=== PATIENT | female | born 1955 | race Caucasian/White ===

== ENCOUNTER 2016-07-24 03:00 | Inpatient (IN) | payer OTHER ==
[~2016-07-24] VITALS: Ht 170.2 cm; Wt 89.8 kg
[~2016-07-24 03:00] MED LIST: ASPIRIN325 M2 PO; CITALOPRAM HBR40 MG PO; COLACE100 M1 PO; DILAUDID2 M1 PO; LEVOXYL75 MCG PO; MIRALAX17 G1 PO; MORPHINE SULFAT30 M3 PO; MS CONTIN15 M2 PO; NORCO 7.5-3251 EACH PO; PERCOCET 5-3251 EACH PO; VICODIN ES 7.51 EACH PO
--- NOTE | 2016-07-24 07:42 | Admission Core Measures ---
Admission Meds I reviewed the following Meds: Current Medications Sig/Gume Start time Last Medication Dose Stop Time Status Admin Acetaminophen 975 MG ONCE 07/24 0000 NR (Tylenol) 07/24 2358 Cefazolin Sodium 2,000 MG ONCE 07/24 NR (Kefzol-Ancef Inj) 07/24 2358 Oxycodone HCl 10 MG ONCE 07/24 0000 NR (Roxicodone) 07/24 2358 Acute Coronary Syndrome Inclusion Criteria ACS Diagnosis No Inpatient Core Measures LDL Reminder: If No, please order W/I first 24hr of stay Congestive Heart Failure Inclusion Criteria CHF Diagnosis No Cerebrovascular accident Inclusion Criteria CVA/TIA Diagnosis No Inpatient Core Measures Bedside Swallow Eval Reminder: If BSE failed, place ST order Antithrombotic Reminder: Order Antithrombotic Medication by end of day 2 Antithrombotic Reminder: Document Reason Antithrombotic Not ordered by end of day 2 AFIB/Flutter Reminder: If Present, add to problem list AFIB/Flutter Reminder: Order Anticoag Medication for pts with AFIB/Flutter Atherosclerosis Reminder: If Present, add to problem list LDL Reminder: If No, please order W/I first 24hr of stay PT Order Reminder: If No, please order Venous thromboembolism Inpatient Core Measures VTE Risk Factors: Age > 40, Surgery VTE Prophylaxis Ordered Inpt Mech & Pharm No Mech VTE prophylaxis d/t No contraindications No VTE Pharm Prophylaxis d/t No contraindications Inclusion Criteria - Per Current guidelines, there needs to be overlap - treatment for the first 5 days of Warfarin therapy. - Parenteral Anticoagulation (IV or SC) needs to be - given along with Warfarin therapy. VTE Diagnosis No VTE Type NONE VTE Confirmed by (Test) NONE Problem List As ranked by this Provider includes Assessment & Plan 1. S/P total hip arthroplasty HOME MEDS Home Med List Aspirin (Aspirin*) 325 MG TABLET 1 TAB PO BID BLOOD THINNER Citalopram Hydrobromide (Citalopram HBr) 40 MG TABLET 1 TAB PO DAILY DEPRESSION (Reported) Docusate Sodium (Colace) 100 MG CAPSULE 1 CAP PO BID PRN CONSTIPATION Hydrocodone/Acetaminophen (Vicodin Es 7.5-300 MG Tablet) 7.5 MG-300 MG TABLET 7.5 MG PO DAILY NEEDED PRN PAIN SCALE 7-10 (SEVERE) (Reported) Levothyroxine Sodium (Levoxyl) 75 MCG TABLET 1 TAB PO DAILY THYROID (Reported ) Polyethylene Glycol 3350 (Miralax) 17 GM POWD.PACK 1 PAC PO DAILY CONSTIPATION
[2016-07-24] MEDS ORDERED: MS CONTIN30 M1 PO (07:59)
[2016-07-24] MEDS ORDERED: MIRALAX17 G1 PO (07:59)
[2016-07-24] MEDS ORDERED: ASPIRIN325 M2 PO (07:59)
[2016-07-24] MEDS ORDERED: DILAUDID4 M1 PO (07:59)
[2016-07-24] MEDS ORDERED: COLACE100 M1 PO (07:59)
--- NOTE | 2016-07-24 08:04 | Patient Discharge Instructions ---
Discharge Instructions General Discharge Information You were seen/treated for: Left hip degenerative joint disease You had these procedures: Left hip total arthroplasty Watch for these problems: Significantly increased pain, difficulty ambulating, redness or drainage from around incision. Fevers greater than 101.5 No bath, but you may shower: Yes Other wound care: See printed information sheet Diet Continue normal diet: Yes Activity Activity Self Limited: Yes Pounds, do NOT lift more than: 10 Other activity limits: As instructed by physical therapy No driving or operating any heavy machinery until cleared by surgeon Acute Coronary Syndrome Inclusion Criteria At DC or during hospital stay patient has or had the following: ACS DIAGNOSIS No Discharge Core Measures Meds if any: Prescribed or Continued at Discharge Meds if any: NOT Prescribed or Continued at Discharge Congestive Heart Failure Inclusion Criteria At DC or during hospital stay patient has or had the following: CHF DIAGNOSIS No Discharge Core Measures Meds if any: Prescribed or Continued at Discharge Meds if any: NOT Prescribed or Continued at Discharge Cerebrovascular accident Inclusion Criteria At DC or during hospital stay patient has or had the following: CVA/TIA Diagnosis No Discharge Core Measures Meds if any: Prescribed or Continued at Discharge Meds if any: NOT Prescribed or Continued at Discharge Venous thromboembolism Inclusion Criteria VTE Diagnosis No VTE Type NONE VTE Confirmed by (Test) NONE Discharge Core Measures - Per Current guidelines, there needs to be overlap - treatment for the first 5 days of Warfarin therapy. - If discharged on Warfarin prior to 5 days of - overlap therapy, the patient will need to be - assessed for post discharge needs including - *Post discharge parental anticoagulation - *Warfarin and/or parental anticoagulation education - *Follow up date to check INR post discharge At least 5 days overlap therapy as Inpatient No Meds if any: Prescribed or Continued at Discharge Note: Overlap Therapy is Warfarin and Anticoagulant Meds if any: NOT Prescribed or Continued at Discharge
--- NOTE | 2016-07-24 08:05 | Surg Short-stay <48hrs Dis Sum ---
Visit Information Visit Dates Admission Date: 07/24/16 Discharge Date: 07/25/16 Surgical Short Stay DC Summary Admission Diagnosis: Left hip degenerative joint disease Final Diagnosis: Same Procedure(s): Left total hip arthroplasty Summary/Significant Findings: The patient was admitted on 07/24/2016. She was brought to the operating theater where she underwent a left hip total arthroplasty. Postoperative the patient progressed as expected, her pain was under adequate control, she worked with physical therapy, voided and tolerated a diet. The patient is discharged with an uneventful hospital course. Condition at Discharge: Stable Discharge Disposition: home health services Discharge instructions provided to patient/family: Yes Post discharge follow-up plan: Call the office to be seen in 6 weeks or earlier if there are any issues
--- NOTE | 2016-07-24 10:37 | RADIOLOGY REPORT ---
2 views of the left hip CLINICAL INFORMATION: Status post left total hip replacement COMPARISON: Abdominal CT 09/20/2012 TECHNIQUE: Two views of the left hip. FINDINGS: There are postoperative changes following left total hip arthroplasty. The prosthesis elements appear well aligned. There are no acute fractures. Mild subcutaneous gas within the left thigh. IMPRESSION: Expected postoperative changes following left total hip arthroplasty. There are no acute osseous findings.
[2016-07-24 11:05] VITALS: BP 108/60
--- NOTE | 2016-07-24 12:35 | NUR ---
PT ARRIVED TO FLOOR AT 1103 VIA STRETCHER. DANA AT BEDSIDE. VITAL SIGNS: BP: 108/60, TEMP 98.0, RR 18, 94% ON ROOM AIR, PULSE 82. PT AMBULATING WITH PHYSICAL THERAPY. C/O MILD PAIN. WILL CONTINUE TO MONITOR.
[2016-07-24 12:59] VITALS: BP 122/60
--- NOTE | 2016-07-24 13:27 | PN- Orthopedic ---
Subjective Subjective: Post Op Note s/p left total hip arthroplasty Patient without c/o. States her pain is well controlled at this time. Denies numbness/tingling in LLE. Tolerating diet thus far, no n/v. Ambulated with PT, no issues. Denies CP/SOB. Objective Vital Signs and I&Os Vital Signs Date Time Temp Pulse Resp B/P Pulse O2 O2 Flow FiO2 Ox Delivery Rate 07/24 1259 97.9 84 20 122/60 96 Room Air 07/24 1105 98.0 82 18 108/60 94 Room Air Intake & Output 07/24 1600 07/24 0800 07/24 0000 07/23 1600 07/23 0800 07/23 0000 Intake Total Output Total Balance Patient 198 lb Weight Physical Exam: General: NAD, comfortable, A&Ox3 Chest: NRD, breathing comfortably on 2L NC. RRR. Abdomen: soft, nontender, nondistended. Ext: Left hip dressing was one small spot in middle otherwise clean dry and intact. Left thigh softly swollen. LLE compartments soft. No calve swelling/ TTP, neurovascularly intact bilateral lower extremities Current Medications: Current Medications Sig/Gume Start time Last Medication Dose Route Stop Time Status Admin Acetaminophen 975 MG ONCE 07/24 0000 DC PO 07/24 2359 Aspirin 325 MG BID 07/24 1000 AC PO Cefazolin Sodium 1,000 MG IQ8 07/24 0800 AC IV 07/24 1601 Cefazolin Sodium 2,000 MG ONCE 07/24 0000 DC IV 07/24 2359 Citalopram 40 MG DAILY 07/24 1000 AC Hydrobromide PO Dextrose/Sodium 1,000 ML .[id number] 07/24 1130 AC 07/24 Chloride IV 1130 Docusate Sodium 100 MG DAILY 07/24 1000 AC PO Hydromorphone HCl 2 MG Q4P PRN 07/24 1130 AC PO Hydromorphone HCl 4 MG Q4P PRN 07/24 1130 AC 07/24 PO 1212 Ketorolac 15 MG Q8 07/24 1400 AC Tromethamine IM 07/25 1401 Levothyroxine Sodium 0.075 MG DAILY AC 07/25 0700 AC PO Morphine Sulfate 2 MG Q2P PRN 07/24 1130 AC 07/24 IV 1125 Morphine Sulfate 30 MG BID 07/24 1000 AC PO Ondansetron HCl 4 MG Q6P PRN 07/24 1130 AC IV Oxycodone HCl 10 MG .STK-MED ONE 07/24 1026 DC PO 07/24 1027 Oxycodone HCl 10 MG .STK-MED ONE 07/24 0728 DC PO 07/24 0729 Oxycodone HCl 10 MG ONCE 07/24 0000 DC PO 07/24 2359 Polyethylene Glycol 17 GM DAILY 07/24 1000 AC PO Promethazine HCl 12.5 MG Q6P PRN 07/24 1130 AC IV 07/31 0744 Assessment/Plan Assessment/Plan 60yo F POD#0 s/p left ANNE. AVSS, patient stable. - Pain control - PRN zofran - ASA 325mg PO BID - OOB and ambulate with PT, WBAT - I/O's - DC IVF when tolerating PO - cefazolin x2 more doses - ALPS - TEDS - CBC, BEP in a.m. Core Measures/Miscellaneous Venous Thromboembolism VTE Risk Factors: Age > 40, Surgery VTE Contraindications: No Contraindications VTE Prophylaxis Ordered Inpt: Mech & Pharm VTE Diagnosis: No VTE Type: NONE VTE Confirmed by (Test): NONE Beta Mary Is Beta Mary a Home Med? No Antibiotics Is Patient on Antibiotics? Yes If Yes: prophylaxis
--- NOTE | 2016-07-24 14:45 | Operative Report ---
Operative/Inv Procedure Report Surgery Date: 07/24/16 Name of Procedure: Left total hip replacement Pre-Operative Diagnosis: Left hip avascular necrosis Post-Operative Diagnosis: Same Estimated Blood Loss: 250 Surgeon/Dermatology Teacher: IGGY LUU,JOHNNY Calderon Anesthesia: block Operative/Procedure Note Note: Description of Procedure: The patient was taken to the operating room and positively identified. After induction of spinal anesthesia and administration of appropriate pre-operative antibiotics, the patient was positioned supine on the operating room table and all bony prominences were well padded. After performing a surgical timeout, the left lower extremity was prepped and draped in the usual sterile fashion. A direct anterior approach was made to the left hip. The incision was carried sharply through superficial soft tissues to the level of the fascia. Meticulous hemostasis was maintained with Bovie electocautery. The fascia over the tensor fascia fauzia muscle was opened sharply and the interval between the TFL and the sartorius was entered bluntly taking care to stay lateral to the lateral femoral cutaneous nerve. Retractors were placed around the femoral neck and the pericapsular fat was identified. The ascending branches of the lateral femoral circumflex vessels were identified and carefully coagulated. The pericapsular fat and anterior capsule were then resected. A napkin ring osteotomy was performed and the femoral head was removed without difficulty. Attention was then turned to the acetabulum. After appropriate placement of retractors, the acetabulum was exposed. Soft tissue was cleaned from the acetabular margin and notch. Overhanging osteophytes were removed and the teardrop was exposed. The acetabulum was then sequentially reamed to accept a 56 mm Hellen Tritanium hemispherical solid back shell. This was impacted into place in the appropriate position and fitted with a 36 mm Trident X3 zero degree polyethylene insert. Attention was then turned to the femur. After performing the appropriate ligament releases, the proximal femur was exposed. It was then sequentially broached to accept a size 3 Hellen accolade 2 stem. This was trialed for leg length and stability. The trial component was removed and the final component was impacted into place. The trunnion was carefully cleaned and fit with a 36 mm, + 2.5 Biolox delta ceramic femoral head. The hip was reduced and put through a full range of motion and found to be stable. The articular space was then irrigated with sterile saline. The periarticular soft tissues were infilitrated with Marcaine. The fascial layer was closed with interrupted #1 vicryl suture and the skin was re-approximated with interrupted 2 -0 vicryl. The skin was closed with a running 3-0 V-Lock suture. Steri-strips and a sterile dressing were applied. The patient was awakened and taken to the recovery room in satisfactory condition.
[2016-07-24 14:52] VITALS: BP 120/64
[2016-07-24 17:25] VITALS: BP 144/64
[2016-07-24 21:40] VITALS: BP 124/72
[2016-07-25 01:40] VITALS: BP 110/70
[2016-07-25 05:26] VITALS: BP 110/64
--- NOTE | 2016-07-25 07:37 | PN- Orthopedic ---
Subjective Subjective: NAEO. Patient c/o pain increased overnight requiring breakthrough pain meds. Pain is improved now but still 6/10. No numbness/tingling in LLE. Tolerating diet without nausea vomiting. Positive flatus, no BM. Out of bed and ambulating with PT. Denies chest pain or shortness of breath. Objective Vital Signs and I&Os Vital Signs Date Time Temp Pulse Resp B/P Pulse O2 O2 Flow FiO2 Ox Delivery Rate 07/25 0526 98.3 87 20 110/64 93 Room Air 07/25 0140 98.1 79 20 110/70 97 Room Air 07/24 2140 97.9 76 20 124/72 97 Room Air 07/24 1725 97.9 81 20 144/64 97 Room Air 07/24 1452 97.5 83 18 120/64 95 Room Air 07/24 1439 Room Air 07/24 1259 97.9 84 20 122/60 96 Room Air 07/24 1105 98.0 82 18 108/60 94 Room Air Intake & Output 07/25 0800 07/25 0000 07/24 1600 07/24 0800 07/24 0000 07/23 1600 Intake Total 300 1300 800 Output Total 200 1400 200 Balance 100 -100 600 Intake, IV 500 300 Intake, Oral 300 800 500 Output, Urine 200 1400 200 Patient 198 lb Weight Physical Exam: General: NAD, comfortable, A&Ox3 Chest: NRD, breathing comfortably on 2L NC. RRR. Abdomen: soft, nontender, nondistended. Ext: Left hip dressing was one small spot in middle otherwise clean dry and intact. Left thigh softly swollen. LLE compartments soft. No calve swelling/ TTP, neurovascularly intact bilateral lower extremities Current Medications: Current Medications Sig/Gume Start time Last Medication Dose Route Stop Time Status Admin Acetaminophen 650 MG Q4P PRN 07/25 729 UNVr PO Acetaminophen 975 MG ONCE 07/24 0000 DC PO 07/24 235 Aspirin 325 MG BID 07/24 1000 AC 07/24 PO 181 Cefazolin Sodium 1,000 MG IQ8 07/24 0800 DC 07/24 IV 07/24 1601 1811 Cefazolin Sodium 2,000 MG ONCE 07/24 0000 DC IV 07/24 2359 Citalopram 40 MG DAILY 07/24 1000 AC 07/24 Hydrobromide PO 1811 Dextrose/Sodium 1,000 ML .[id number] 07/24 1130 DC 07/24 Chloride IV 1130 Docusate Sodium 100 MG DAILY 07/24 1000 AC 07/24 PO 1812 Hydromorphone HCl 2 MG Q4P PRN 07/24 1130 AC PO Hydromorphone HCl 4 MG Q4P PRN 07/24 1130 AC 07/25 PO 0538 Hydromorphone HCl 2 MG .STK-MED ONE 07/24 0936 DC IM 07/24 0937 Ketorolac 15 MG Q8 07/24 1400 AC 07/25 Tromethamine IM 07/25 1401 0551 Levothyroxine Sodium 0.075 MG DAILY AC 07/25 0700 AC 07/25 PO 0545 Morphine Sulfate 2 MG Q2P PRN 07/24 1130 AC 07/25 IV 0307 Morphine Sulfate 30 MG BID 07/24 1000 AC 07/24 PO 2101 Ondansetron HCl 4 MG Q6P PRN 07/24 1130 AC 07/25 IV 0631 Oxycodone HCl 10 MG .STK-MED ONE 07/24 1026 DC PO 07/24 1027 Oxycodone HCl 10 MG ONCE 07/24 0000 DC PO 07/24 2359 Polyethylene Glycol 17 GM DAILY 07/24 1000 AC 07/24 PO 1812 Promethazine HCl 12.5 MG Q6P PRN 07/24 1130 AC IV 07/31 0744 Assessment/Plan Assessment/Plan 60yo F POD#1 s/p left ANNE. AVSS, patient stable. - Pain control - PRN zofran - ASA 325mg PO BID - OOB and ambulate with PT, WBAT - I/O's - DC IVF - abx complete - ALPS - TEDS - f/u CBC, BEP - DC home if pain controlled, labs acceptible, and cleared by PT - Will d/w attending Core Measures/Miscellaneous Venous Thromboembolism VTE Risk Factors: Age > 40, Surgery VTE Contraindications: No Contraindications VTE Prophylaxis Ordered Inpt: Mech & Pharm VTE Diagnosis: No VTE Type: NONE VTE Confirmed by (Test): NONE Beta Mary Is Beta Mary a Home Med? No Antibiotics Is Patient on Antibiotics? No If Yes: prophylaxis
[2016-07-25 09:05] LABS: ABSOLUTE BASOPHIL COUNT 0 /CUMM (0.0-0.2); ABSOLUTE EOSINOPHIL COUNT 0 /CUMM (0.0-0.7); ABSOLUTE GRANULOCYTE CT 6.1 /CUMM (1.4-6.5); ABSOLUTE MONOCYTE COUNT 0.7 /CUMM (0.10-0.60); BASOPHIL % 0.3 % (0.0-2.0); EOSINOPHIL % 0.4 % (0-5); GRANULOCYTE % 68.5 % (42.2-75.2); HEMATOCRIT 32.4 % (37-47); MEAN CORPUSCULAR HGB 31.1 PG (27.0-31.0); MEAN CORPUSCULAR HGB CONC 34.2 G/DL (33.0-37.0); MEAN CORPUSCULAR VOLUME 90.9 FL (81.0-99.0); MEAN PLATELET VOLUME 8.6 FL (7.4-10.4); PLATELET COUNT 210 /CUMM (130-400); RBC DISTRIBUTION WIDTH 12.7 % (11.5-14.5); RED BLOOD CELL CT 3.57 /CUMM (4.20-5.40); WHITE BLOOD CELL COUNT 8.9 /CUMM (4.8-10.8)
[2016-07-25 10:39] VITALS: BP 116/60
== END 2016-07-25 14:37 | disposition home health service (06) | DRG 470 ==
LOC: ENRESERVDT → ENRESERVTM → 2NA 03:00 → SDA 03:00 → ENPENDDIS 03:00 → 2NA 11:03
PROVIDERS: Physician Assistant Surgical; ADMIT Orthopaedic Surgery
PROC: 0SRB04A Replacement of Left Hip Joint with Ceramic on Polyethylene Synthetic Substitute, Uncemented, Open Approach (ICD-10-PCS; principal; 2016-07-24)
DX: M87.9 Osteonecrosis, unspecified (principal); Z85.038 Personal history of other malignant neoplasm of large intestine; Z87.891 Personal history of nicotine dependence
CPT/HCPCS: 2NAP; 36415; 73502-LT; 82436; 88304; 93005; 93010; 97116-GO; 97161-GP; 97530-GO; J0690; J0735; J2405; J2550; J3101; J3250; J7042